=== PATIENT | female | born 1985 | race Hispanic/Latino ===

== ENCOUNTER 2019-04-25 08:55 | Emergency (ER) | payer SELFPAY ==
[~2019-04-25] VITALS: Ht 152.4 cm; Wt 65.3 kg
[2019-04-25 09:22] LABS: BILIRUBIN,URINE NEGATIVE (NEGATIVE); CLARITY,URINE CLOUDY (CLEAR); COLOR,URINE YELLOW (YELLOW); KETONES,URINE NEGATIVE (NEGATIVE); LEUKOCYTE ESTERASE ,URINE NEGATIVE (NEGATIVE); NITRITE,URINE NEGATIVE (NEGATIVE); PROTEIN,URINE DIPSTICK TRACE (NEGATIVE); URINE UROBILINOGEN 1 mg/dL (0.2 - 1)
[2019-04-25 09:30] LABS: PREGNANCY TEST, URINE NEGATIVE (NEGATIVE)
[2019-04-25 09:46] LABS: WBC,URINE (MAN) 0-5 /HPF (0-5)
[2019-04-25 09:47] LABS: AMORPHOUS SEDIMENT,URINE FEW (FEW); BACTERIA,URINE MANY /HPF; EPITHELIAL CELLS,URINE MANY /LPF; MUCUS,URINE MODERATE (RARE)
--- NOTE | 2019-04-25 10:27 | Diagnostic Imaging Report ---
EXAMINATION: SP LUMBAR, COMPLETE MIN 4VW INDICATION: Trauma COMPARISON: None FINDINGS: No acute fracture. Alignment is normal. No substantial degenerative change. Nonobstructive bowel gas pattern. IMPRESSION: No acute osseous injury. Normal lumbar spine alignment. Signed by: Cayetano Jovel MD on 04/25/2019 10:23 AM
--- NOTE | 2019-04-25 10:28 | Diagnostic Imaging Report ---
EXAMINATION: CHEST 2 VIEWS INDICATION: Trauma COMPARISON: None FINDINGS: LINES/TUBES:None LUNGS:The lungs are well-inflated. No focal consolidation or pulmonary edema. PLEURA:No pleural effusion or pneumothorax. MEDIASTINUM:The cardiomediastinal silhouette appears normal in size and shape. BONES/SOFT TISSUES:No acute osseous injury. ABDOMEN:No free air under the diaphragm. IMPRESSION: No radiographically apparent traumatic injury to the thorax. No focal pneumonia or pulmonary edema. Signed by: Cayetano Jovel MD on 04/25/2019 10:25 AM
--- NOTE | 2019-04-25 10:29 | Diagnostic Imaging Report ---
EXAMINATION: SHOULDER RIGHT COMPLETE INDICATION: Trauma COMPARISON: None FINDINGS: No acute fracture or dislocation. Alignment is anatomic. The visualized portion of the right lung is clear. IMPRESSION: No acute osseous injury. Signed by: Cayetano Jovel MD on 04/25/2019 10:26 AM
--- NOTE | 2019-04-25 10:32 | Diagnostic Imaging Report ---
EXAMINATION: CERVICAL SPINE 4 OR 5 VIEWS INDICATION: Trauma COMPARISON: None FINDINGS: No acute fracture. Minimal straightening of the normal cervical lordosis. Alignment is otherwise normal. No substantial degenerative change. The prevertebral soft tissues are normal in thickness. No substantial degenerative change. The cervical neural foramina appear widely patent. IMPRESSION: No acute osseous injury. Signed by: Cayetano Jovel MD on 04/25/2019 10:28 AM
== END 2019-04-25 11:23 | disposition home or self-care (01) ==
LOC: ER 08:55
DX: M54.2 Cervicalgia (principal); M54.5 Low back pain; S16.1XXA Strain of muscle, fascia and tendon at neck level, initial encounter; S39.012A Strain of muscle, fascia and tendon of lower back, initial encounter; V43.52XA Car driver injured in collision with other type car in traffic accident, initial encounter; Y92.488 Other paved roadways as the place of occurrence of the external cause; M25.511 Pain in right shoulder
CPT/HCPCS: 71046; 72050; 72110; 81001; 81025; 99284